=== PATIENT | female | born 1995 | race Caucasian/White ===

== ENCOUNTER 2022-06-19 12:49 | Emergency (ER) | payer OTHER ==
[~2022-06-19] VITALS: Ht 154.9 cm; Wt 71.2 kg
[2022-06-19] MEDS ORDERED: MULTTAB20 PO (12:58)
[2022-06-19] MEDS ORDERED: NS 1,000 ML IV ONE (17:40)
[2022-06-19 18:24] LABS: BASO # 0.1 10^3/uL (0.0-0.2); BASO % 0.5 % (0.0-1.0); EOS % 0.3 % (0.0-3.0); HEMATOCRIT 32.5 % (36.0-47.0); HEMOGLOBIN 11.2 g/dl (12.0-15.5); LYMPH # 2.4 10^3/uL (1.5-5.0); LYMPH % 21.6 % (24.0-44.0); MEAN CORPUSCULAR HEMOGLOBIN 30.8 pg (27.0-33.0); MEAN CORPUSCULAR HGB CONC 34.5 g/dl (32.0-36.5); MEAN CORPUSCULAR VOLUME 89.3 fl (80.0-96.0); MONO # 0.7 10^3/uL (0.0-0.8); MONO % 6.1 % (2.0-8.0); NEUTROPHILS # 7.8 10^3/uL (1.5-8.5); NEUTROPHILS % 70.2 % (36.0-66.0); PLATELET COUNT, AUTOMATED 234 10^3/uL (150-450); RED BLOOD COUNT 3.64 10^6/uL (4.00-5.40)
[2022-06-19 18:37] LABS: INR 0.98; PARTIAL THROMBOPLASTIN TIME 26.7 SECONDS (25.9-37.0); PROTHROMBIN TIME 13.4 SECONDS (12.7-14.5)
[2022-06-19 20:10] VITALS: BP 116/68
== END 2022-06-19 20:12 | disposition home or self-care (01) ==
LOC: M ED 12:49
DX: O26.892 Other specified pregnancy related conditions, second trimester (principal); M54.2 Cervicalgia; Z3A.23 23 weeks gestation of pregnancy